=== PATIENT | male | born 1975 | race Caucasian/White ===

== ENCOUNTER 2024-06-01 20:36 | Emergency (ER) | payer MEDICAID, SELFPAY ==
[2024-06-01 20:37] VITALS: BP 138/83; PULSE 73; RESP 18; TEMP 36.6; O2SAT 98; BMI 28.1; BMI 32.3
--- NOTE | 2024-06-01 20:47 | PC.NURSE ---
Dr. Negro at bedside
--- NOTE | 2024-06-01 20:51 | CT_ITS ---
PROCEDURE INFORMATION: Exam: CT Abdomen And Pelvis With Contrast Exam date and time: 06/01/2024 9:28 PM Age: 48 years old Clinical indication: Nausea; Abdominal pain; Additional info: H/o diverticulitis, llq pain and nausea TECHNIQUE: Imaging protocol: Computed tomography of the abdomen and pelvis with contrast. Radiation optimization: All CT scans at this facility use at least one of these dose optimization techniques: automated exposure control; mA and/or kV adjustment per patient size (includes targeted exams where dose is matched to clinical indication); or iterative reconstruction. Contrast material: ISOVUE; Contrast volume: 75 ml; Contrast route: IV; COMPARISON: No relevant prior studies available. FINDINGS: Heart: Cardiomegaly Liver: Normal. No mass. Gallbladder and biliary ducts: Cholecystectomy Pancreas: Normal. No ductal dilation. Spleen: Normal. No splenomegaly. Adrenal glands: Normal. No mass. Kidneys and ureters: Several nonobstructing calyceal calculi are present at inferior poles both kidneys. These measure 2-3 mm in diameter. No ureteral calculus. Stomach and bowel: Diverticulitis at the proximal sigmoid colon. Appendix: No evidence of appendicitis. Intraperitoneal space: Unremarkable. No free air. No significant fluid collection. Vasculature: Unremarkable. No abdominal aortic aneurysm. Lymph nodes: Unremarkable. No enlarged lymph nodes. Urinary bladder: Mild diffuse thickening of the urinary bladder. Reproductive: Unremarkable as visualized. Bones/joints: Unremarkable. No acute fracture. Soft tissues: Unremarkable. Other findings: No rim enhancing fluid collection. IMPRESSION: Uncomplicated diverticulitis at proximal sigmoid colon.
--- NOTE | 2024-06-01 21:00 | ED_ITS ---
Discharge Plan Disposition Patient Disposition: Home, Self-Care Prescriptions Prescriptions: New amoxicillin-pot clavulanate 875-125 mg tablet 1 tab PO BID 10 Days Qty: 20 0RF No Action nifedipine 30 mg tablet extended release 24hr 30 mg PO DAILY Patient Comments: TOME 1 TABLETA POR V A ORAL TODOS LOS D metformin 500 mg tablet 500 mg PO BID Patient Comments: TOME 1 TABLETA POR V A ORAL TODOS LOS D ketoconazole 2 % cream 1 applic TOPICAL DAILY Patient Comments: APLIQUE AL WING AFECTADA TODOS LOS D fluticasone propionate 50 mcg/actuation spray,suspension 2 spray INTRANASAL DAILY Patient Comments: USE 2 SPRAYS IN EACH NOSTRIL ONCE DAILY Referrals Follow up/Referrals: Provider,Referral, MD [Primary Care Provider] - See instructions Activity Restrictions/Add. Instructions Additional Instructions/Restrictions: Marii antibioticos 2 veces por celine para 10 marino. Si tiene sintomas mas malas, or sintomas no improban despues 3 marino, regresa al departamento de emergencias. Clinical Impressions Clinical Impression: Diverticulitis Instructions Patient Instructions: DI for Diverticulitis, DI for Acute Abdominal Pain Print Language Print Language: Macedonian Discharge ED Provider: Alphonse Coelho General Adult HPI <Segundo Negro MD - Last Filed: 06/01/24 23:01> General Chief complaint: Abdominal Pain Stated complaint: stomach pain Time Seen by Provider: 06/01/24 20:38 History of Present Illness HPI narrative: Please note that above description of symptoms, in this electronic medical record under categorization of recalled from ER triage doctor by RN are reflective of an initial nursing assessment, however, is not reflective of my full history and physical exam that was personally taken and clarified. Consequentially, this preceding description of symptoms, which may include the patient's categorized chief complaint in the EMR, do not reflect my personal clinical impression, and the ultimate description of history of present illness and patient stated complaints should be deferred to this section of the note. Unless stated otherwise or congruent with this section of the note, additional signs, symptoms, or incongruence should be interpreted as inaccurate with my clinical impression. Related Data Home Medications ?Medication ?Instructions ?Recorded ?Confirmed fluticasone propionate 50 2 spray intranasal DAILY 06/01/24 06/01/24 mcg/actuation nasal spray,suspension ketoconazole 2 % topical cream 1 applic topical DAILY 06/01/24 06/01/24 metformin 500 mg tablet 500 mg PO BID 06/01/24 06/01/24 nifedipine 30 mg tablet,extended 30 mg PO DAILY 06/01/24 06/01/24 release 24 hr Previous Rx's ?Medication ?Instructions ?Recorded amoxicillin 875 mg-potassium 1 tab PO BID 10 days #20 tabs 06/01/24 clavulanate 125 mg tablet Allergies Allergy/AdvReac Type Severity Reaction Status Date / Time No Known Allergies Allergy Verified 06/01/24 20:52 [facility] <Segundo Negro MD - Last Filed: 06/01/24 23:01> [facility] Disclaimer: The information contained in this section may have been updated after the patient was seen, as this information can be updated by other users. Medical History (Updated 06/01/24 @ 22:55 by Segundo Negro MD) High blood pressure Diabetes Social History (Updated 06/01/24 @ 23:01 by Segundo Negro MD) Smoking Status: Current some day smoker alcohol intake: never current occupational status: employed Travel in the last 8 weeks: None <Segundo Negro MD - Last Filed: 06/01/24 23:01> ROS Obtained: Yes All systems reviewed & no additional complaints except as documented Physical Exam <Segundo Negro MD - Last Filed: 06/01/24 23:01> General General appearance: alert Head Head exam: atraumatic and normocephalic Eye Eye exam: Present normal appearance, PERRL and EOMI Neck Neck exam: Present normal inspection, full ROM and trachea midline Respiratory Respiratory exam: Absent respiratory distress, wheezes, stridor, accessory muscle use or prolonged expiratory phase Cardiovascular Cardiovascular exam: Present regular rate, normal rhythm and other (Pulses equal symmetric in upper and lower extremities) Abdominal Exam Abdominal exam: Present soft and tenderness; Absent distention, guarding, rebound, rigidity or pulsatile mass Abdominal tenderness: Present LLQ, suprapubic and moderate Extremities Exam Extremities exam: Absent edema Neurological Exam Neurological exam: Present alert, oriented X3 and CN II-XII intact; Absent motor sensory deficit Skin Skin exam: Present warm and dry; Absent diaphoresis or erythema Medical Decision Making <Segundo Negro MD - Last Filed: 06/01/24 23:01> Medical Records Medical records reviewed: Yes I reviewed the patient's medical records. Screening: Per USPSTF and CDC recommendations, given the prevalence of disease in our region, it is our hospital?s policy to screen for HIV and viral Hepatitis for all patients aged 18 and over and those with ongoing risk factors. Serge Inquiry Pt receiving controlled substance: No Serge was queried for this patient: No Vital Signs: 06/01/24 20:37 06/01/24 23:37 06/01/24 23:52 Temperature 98 F 98.0 F Temperature Source Oral Oral Pulse Rate 66 63 Pulse Rate [Right] 73 Respiratory Rate 18 18 Blood Pressure 143/104 H 143/104 H Blood Pressure [Right Arm] 138/83 Blood Pressure Mean [Right Arm] 101 Blood Pressure Source Automatic Cuff Blood Pressure Source [Right Arm] Automatic Cuff 02 Sat by Pulse Oximetry 98 97 Oxygen Delivery Method Room Air Room Air Lab Data Lab Results 06/01/24 20:53: VBG pH 7.38, VBG pCO2 45.1, VBG pO2 37.5, VBG HCO3 26.0, VBG Total CO2 27.4 H, VBG O2 Saturation 74.7 H, VBG Base Excess 0.9, VBG Lactic Acid 1.4 06/01/24 20:58: WBC 10.2, RBC 4.50 L, Hgb 15.0, Hct 42.8, MCV 95.1 H, MCH 33.2 H , MCHC 35.0, RDW 13.6, Plt Count 156, MPV 10.1, Neut % (Auto) 74.7, Lymph % (Auto) 17.1, Hernando % (Auto) 7.1, Eos % (Auto) 0.6, Baso % (Auto) 0.5, Neut # (Auto) 7.6, Lymph # (Auto) 1.8, Hernando # (Auto) 0.7, Eos # (Auto) 0.1, Baso # (Auto) 0.1, APTT 30.7 H, Sodium 140, Potassium 3.2 L, Chloride 106, Carbon Dioxide 28, Anion Gap 9.2, BUN 21 H, Creatinine 0.90, Estimated Creat Clear 132, Estimated GFR 91, Est GFR ( Amer) 110, Glucose 109 H, Lactate 0.6 L, Calcium 8.8, Total Bilirubin 0.6, AST 26, ALT 30, Alkaline Phosphatase 82, Total Protein 7.2, Albumin 4.4, Globulin 2.8, Albumin/Globulin Ratio 1.6, Lipase 141 06/01/24 21:03: Urine Color Yellow, Urine Appearance Clear, Urine pH 7.0, Ur Specific Bronson 1.015, Urine Protein Negative, Urine Glucose (UA) Negative, Urine Ketones Negative, Urine Blood Trace-i, Urine Nitrate Negative, Urine Bilirubin Negative, Urine Urobilinogen 0.2, Ur Leukocyte Esterase Trace, Urine RBC 3-5, Urine WBC 3-5, Ur Squamous Epith Cells Occasional, Urine Bacteria Trace 06/01/24 20:58 06/01/24 20:58 Orders (Tests/Meds): ED MEDICATIONS Generic Name Dose Route Start Last Admin Trade Name Fremarivel PRN Reason Stop Dose Admin Sodium Chloride 10 ml 06/01/24 21:40 06/01/24 21:42 Sodium Chloride 0.9% 10ml Syr (Rad Only) IV 07/01/24 21:39 10 ml NEEDED PRN Administration Maintain IV Site Discontinued Medications Generic Name Dose Route Start Last Admin Trade Name Dorene PRN Reason Stop Dose Admin Acetaminophen 1,000 mg 06/01/24 20:51 06/01/24 21:04 Acetaminophen 500mg Tab PO 06/01/24 20:52 1,000 mg ONCE ONE Administration Ampicillin Sodium/Sulbactam 100 mls @ 200 mls/hr 06/01/24 22:11 06/01/24 22:25 Sodium 3 gm/ Sodium Chloride IV 06/01/24 22:12 Not Given ONCE ONE Ampicillin Sodium/Sulbactam 100 mls @ 200 mls/hr 06/01/24 22:17 06/01/24 22:20 Sodium 3 gm/ Sodium Chloride IV 06/01/24 22:18 200 mls/hr ONCE ONE Administration Iopamidol 75 ml 06/01/24 21:40 06/01/24 21:42 Iopamidol-370 (76%);100ml Bottle IV 06/01/24 21:41 75 ml ONCE ONE Administration Ketorolac Tromethamine 15 mg 06/01/24 20:51 06/01/24 21:04 Ketorolac 30mg/Ml Vial IV 06/01/24 20:52 15 mg ONCE ONE Administration ORDERS Category Date Time Status CT abdomen pelvis w con Stat Cat Scan 06/01/24 20:51 Completed Complete Blood Count Auto Diff Stat Lab 06/01/24 20:58 Completed Comprehensive Metabolic Panel Stat Lab 06/01/24 20:58 Completed HIV (1&2) Antibody Rapid Stat Lab 06/01/24 20:58 Received Hep C Ab with Reflex to RNA Stat Lab 06/01/24 20:58 Received Lactic Acid Stat Lab 06/01/24 20:58 Completed Lipase Stat Lab 06/01/24 20:58 Completed PTT [Activated Partial Thrombo Time] Stat Lab 06/01/24 20:58 Completed Urinalysis and Microscopic Stat Lab 06/01/24 21:03 Completed Venous Blood Gas Stat RT 06/01/24 20:53 Ordered Medical Decision Narrative: 48-year-old male history of diabetes, diverticulitis managed previously with oral Augmentin, cholecystectomy presenting with abdominal pain. He states that it started around 7 PM tonight, 06/01. Progressively worse since that time. His left lower quadrant, 6 out of 10, radiates across his lower abdomen intermittently. No fevers or chills, nausea or vomiting, diarrhea, blood in his stool, or urinary symptoms since the pain started. Last bowel movement was earlier today, normal for him. He has had blood in his stool in the past, but has not had any blood in his stool for the past several days or since this started. Patient has not taken any medications for this and does not know anything that makes it better or worse. History was obtained via conversation with patient. On arrival, patient hemodynamically stable, alert, oriented x4, appropriate, GCS 15, moving all extremities spontaneously, pupils equal and reactive to light. Full physical exam performed and significant for well- appearing 48-year-old male, no acute distress. Speaking in full sentences. Abdomen is soft, moderately tender in left lower quadrant suprapubic area without rebound, rigidity, or guarding. Patient has no overlying skin changes. No left flank tenderness. Differential includes PUD, gastritis, enteritis, gastroenteritis, pancreatitis, SBO, colitis, diverticulitis, nephrolithiasis, UTI, cholecystitis, choledocholithiasis, appendicitis, torsion, hepatitis, less likely aortic pathology, mesenteric ischemia among others. Patient placed on continuous cardiac monitoring and continuous pulse ox with initial blood pressure 138/83, heart rate 73, saturation 98% on room air. Patient was given Toradol, acetaminophen for symptomatic management and correction of underlying abnormalities. Workup independently interpreted and significant for nonactionable CBC with normal white count. VBG not acidotic, lactate negative. Lipase negative. Urinalysis without concern for. On independent interpretation of imaging, patient has uncomplicated diverticulitis without obvious evidence of abscess or rupture. No evidence of free air. See radiology read for full review of final results. On reevaluation, patient resting comfortably, states his pain is improved with the Toradol and acetaminophen. Given patient presentation, workup, history, this most likely represents uncomplicated diverticulitis. Patient given initial dose of Unasyn 3 g. Augmentin sent to pharmacy. prior to final read and disposition, care handed off to oncoming physician. Welding Operator disclaimer Much of this encounter note is an electronic university administrative assistant spoken language to printed text. Electronic university administrative assistant of the spoken language may permit errors. Although I have reviewed the note, some errors may still exist. <Alphonse Coelho MD - Last Filed: 06/01/24 23:58> Vital Signs: 06/01/24 20:37 06/01/24 23:37 06/01/24 23:52 Temperature 98 F 98.0 F Temperature Source Oral Oral Pulse Rate 66 63 Pulse Rate [Right] 73 Respiratory Rate 18 18 Blood Pressure 143/104 H 143/104 H Blood Pressure [Right Arm] 138/83 Blood Pressure Mean [Right Arm] 101 Blood Pressure Source Automatic Cuff Blood Pressure Source [Right Arm] Automatic Cuff 02 Sat by Pulse Oximetry 98 97 Oxygen Delivery Method Room Air Room Air Lab Data Lab Results 06/01/24 20:53: VBG pH 7.38, VBG pCO2 45.1, VBG pO2 37.5, VBG HCO3 26.0, VBG Total CO2 27.4 H, VBG O2 Saturation 74.7 H, VBG Base Excess 0.9, VBG Lactic Acid 1.4 06/01/24 20:58: WBC 10.2, RBC 4.50 L, Hgb 15.0, Hct 42.8, MCV 95.1 H, MCH 33.2 H , MCHC 35.0, RDW 13.6, Plt Count 156, MPV 10.1, Neut % (Auto) 74.7, Lymph % (Auto) 17.1, Hernando % (Auto) 7.1, Eos % (Auto) 0.6, Baso % (Auto) 0.5, Neut # (Auto) 7.6, Lymph # (Auto) 1.8, Hernando # (Auto) 0.7, Eos # (Auto) 0.1, Baso # (Auto) 0.1, APTT 30.7 H, Sodium 140, Potassium 3.2 L, Chloride 106, Carbon Dioxide 28, Anion Gap 9.2, BUN 21 H, Creatinine 0.90, Estimated Creat Clear 132, Estimated GFR 91, Est GFR ( Amer) 110, Glucose 109 H, Lactate 0.6 L, Calcium 8.8, Total Bilirubin 0.6, AST 26, ALT 30, Alkaline Phosphatase 82, Total Protein 7.2, Albumin 4.4, Globulin 2.8, Albumin/Globulin Ratio 1.6, Lipase 141 06/01/24 21:03: Urine Color Yellow, Urine Appearance Clear, Urine pH 7.0, Ur Specific Bronson 1.015, Urine Protein Negative, Urine Glucose (UA) Negative, Urine Ketones Negative, Urine Blood Trace-i, Urine Nitrate Negative, Urine Bilirubin Negative, Urine Urobilinogen 0.2, Ur Leukocyte Esterase Trace, Urine RBC 3-5, Urine WBC 3-5, Ur Squamous Epith Cells Occasional, Urine Bacteria Trace Orders (Tests/Meds): ED MEDICATIONS Generic Name Dose Route Start Last Admin Trade Name Freq PRN Reason Stop Dose Admin Sodium Chloride 10 ml 06/01/24 21:40 06/01/24 21:42 Sodium Chloride 0.9% 10ml Syr (Rad Only) IV 07/01/24 21:39 10 ml NEEDED PRN Administration Maintain IV Site Discontinued Medications Generic Name Dose Route Start Last Admin Trade Name Freq PRN Reason Stop Dose Admin Acetaminophen 1,000 mg 06/01/24 20:51 06/01/24 21:04 Acetaminophen 500mg Tab PO 06/01/24 20:52 1,000 mg ONCE ONE Administration Ampicillin Sodium/Sulbactam 100 mls @ 200 mls/hr 06/01/24 22:11 06/01/24 22:25 Sodium 3 gm/ Sodium Chloride IV 06/01/24 22:12 Not Given ONCE ONE Ampicillin Sodium/Sulbactam 100 mls @ 200 mls/hr 06/01/24 22:17 06/01/24 22:20 Sodium 3 gm/ Sodium Chloride IV 06/01/24 22:18 200 mls/hr ONCE ONE Administration Iopamidol 75 ml 06/01/24 21:40 06/01/24 21:42 Iopamidol-370 (76%);100ml Bottle IV 06/01/24 21:41 75 ml ONCE ONE Administration Ketorolac Tromethamine 15 mg 06/01/24 20:51 06/01/24 21:04 Ketorolac 30mg/Ml Vial IV 06/01/24 20:52 15 mg ONCE ONE Administration ORDERS Category Date Time Status CT abdomen pelvis w con Stat Cat Scan 06/01/24 20:51 Completed Complete Blood Count Auto Diff Stat Lab 06/01/24 20:58 Completed Comprehensive Metabolic Panel Stat Lab 06/01/24 20:58 Completed HIV (1&2) Antibody Rapid Stat Lab 06/01/24 20:58 Received Hep C Ab with Reflex to RNA Stat Lab 06/01/24 20:58 Received Lactic Acid Stat Lab 06/01/24 20:58 Completed Lipase Stat Lab 06/01/24 20:58 Completed PTT [Activated Partial Thrombo Time] Stat Lab 06/01/24 20:58 Completed Urinalysis and Microscopic Stat Lab 06/01/24 21:03 Completed Venous Blood Gas Stat RT 06/01/24 20:53 Ordered Medical Decision Narrative: 48-year-old male history of diabetes, diverticulitis managed previously with oral Augmentin, cholecystectomy presenting with abdominal pain. He states that it started around 7 PM tonight, 06/01. Progressively worse since that time. His left lower quadrant, 6 out of 10, radiates across his lower abdomen intermittently. No fevers or chills, nausea or vomiting, diarrhea, blood in his stool, or urinary symptoms since the pain started. Last bowel movement was earlier today, normal for him. He has had blood in his stool in the past, but has not had any blood in his stool for the past several days or since this started. Patient has not taken any medications for this and does not know anything that makes it better or worse. History was obtained via conversation with patient. On arrival, patient hemodynamically stable, alert, oriented x4, appropriate, GCS 15, moving all extremities spontaneously, pupils equal and reactive to light. Full physical exam performed and significant for well- appearing 48-year-old male, no acute distress. Speaking in full sentences. Abdomen is soft, moderately tender in left lower quadrant suprapubic area without rebound, rigidity, or guarding. Patient has no overlying skin changes. No left flank tenderness. Differential includes PUD, gastritis, enteritis, gastroenteritis, pancreatitis, SBO, colitis, diverticulitis, nephrolithiasis, UTI, cholecystitis, choledocholithiasis, appendicitis, torsion, hepatitis, less likely aortic pathology, mesenteric ischemia among others. Patient placed on continuous cardiac monitoring and continuous pulse ox with initial blood pressure 138/83, heart rate 73, saturation 98% on room air. Patient was given Toradol, acetaminophen for symptomatic management and correction of underlying abnormalities. Workup independently interpreted and significant for nonactionable CBC with normal white count. VBG not acidotic, lactate negative. Lipase negative. Urinalysis without concern for. On independent interpretation of imaging, patient has uncomplicated diverticulitis without obvious evidence of abscess or rupture. No evidence of free air. See radiology read for full review of final results. On reevaluation, patient resting comfortably, states his pain is improved with the Toradol and acetaminophen. Given patient presentation, workup, history, this most likely represents uncomplicated diverticulitis. Patient given initial dose of Unasyn 3 g. Augmentin sent to pharmacy. prior to final read and disposition, care handed off to oncoming physician. Welding Operator disclaimer Much of this encounter note is an electronic university administrative assistant spoken language to printed text. Electronic university administrative assistant of the spoken language may permit errors. Although I have reviewed the note, some errors may still exist. Meliton BHATTI: I assumed care of the patient at the time of handoff from the prior provider. On reassessment patient abelino hemodynamically stable. CT imaging independently interpreted by me and shows uncomplicated diverticulitis, no evidence of rim- enhancing fluid collection or perforation. These findings were communicated with patient and he was discharged in stable condition with specific return precautions and prescription for Augmentin for treatment of diverticulitis. Critical Care <Segundo Negro MD - Last Filed: 06/01/24 23:01> Critical Care Time Critical Care Time: No
[2024-06-01] MEDS: ACETAMINOPHEN 500MG TAB 1000 MG PO (21:04)
[2024-06-01] MEDS: KETOROLAC 30MG/ML VIAL 15 MG IV (21:04)
[2024-06-01 21:08] LABS: Microscopic, Urine URINE MICROSCOPIC (MICROSCOPIC)
--- NOTE | 2024-06-01 21:08 | PC.NURSE ---
Administered 1000mg of PO tylenol and 15mg of ketorlac as per the MAR
[2024-06-01 21:10] LABS: Lactate Venous 1.4 mmol/L (0.4-2.0); VBG Base Excess 0.9 mmol/L (-2.4-2.3); VBG Oxygen Saturation 74.7 % (50-70); VBG PCO2 45.1 mmol/L (35-51); VBG PH 7.38 mmol/L (7.31-7.41); VBG PO2 37.5 mmol/L (28-40); VBG Total CO2 27.4 mmol/L (23-27)
[2024-06-01 21:11] LABS: Appearance,Urine CLEAR (Clear); Bilirubin,Urine Negative (Negative); Blood, Urine TRACE-I (Negative); Color,Urine YELLOW (Yellow); Glucose,Urine (UA) Negative (Negative); Ketones,Urine Negative (Negative); Leukocyte Esterase,Urine TRACE (Negative); Nitrate,Urine Negative (Negative); Protein,Urine Negative (Negative); Specific Gravity, Urine 1.015 (1.005-1.030); Urobilinogen,Urine 0.2 EU/dl (0.2)
[2024-06-01 21:11] LABS: Albumin Level 4.4 g/dl (3.5-5.0); Chloride 106 mmol/L (98-107)
[2024-06-01 21:12] LABS: Basophils # 0.1 K/mm3 (0-0.2); Basophils % 0.5 % (0.1-2.0); Eosinophils # 0.1 K/mm3 (0.0-0.4); Eosinophils % 0.6 % (0.1-12.0); Hematocrit 42.8 % (42.0-52.0); Lymphocytes # 1.8 K/mm3 (0.7-4.5); Lymphocytes % 17.1 % (10-50); Mean Corpuscular Hemoglobin 33.2 pg (27.0-31.2); Mean Corpuscular Volume 95.1 fl (80-94); Mean Platelet Volume 10.1 fl (7.4-10.4); Monocytes # 0.7 K/mm3 (0.1-1.0); Monocytes % 7.1 % (1.7-9.3); Neutrophils # 7.6 K/mm3 (1.8-7.8); Neutrophils % 74.7 % (37.0-80.0); Platelet Count 156 K/mm3 (142-424); Potassium 3.2 mmoL/L (3.5-5.1); Red Cell Distribution Width 13.6 % (11.5-17.5); Sodium 140 mmol/L (136-145); White Blood Count 10.2 K/mm3 (4.8-10.8)
[2024-06-01 21:14] LABS: Alanine Aminotransferase 30 U/L (12-78); Anion Gap 9.2 mEq/L (5-15); Aspartate Amino Transferase 26 U/L (17-59); Blood Urea Nitrogen 21 mg/dl (9-20); Carbon Dioxide 28 mmol/L (22.0-30.0); Creatinine Clearance Estimated 132 mL/min (50-200); Estimated Glomerular Filt Rate 91 ml/min (>60); GFR (African American) 110 ML/MIN (>60); Lactic Acid 0.6 mmol/L (0.7-2.1)
[2024-06-01 21:15] LABS: Albumin/Globulin Ratio 1.6 (1.1-1.8); Alkaline Phosphatase 82 U/L (38-126); Bilirubin,Total 0.6 mg/dl (0.2-1.3); Calcium 8.8 mg/dl (8.4-10.2); Globulin 2.8 g/dL (1.3-3.2); Glucose 109 mg/dl (74-100); Lipase 141 U/L (23-300); Total Protein,Serum 7.2 g/dl (6.3-8.2)
[2024-06-01 21:21] LABS: Activated Partial Thrombo Time 30.7 seconds (22.8-30.6)
[2024-06-01 21:25] LABS: Bacteria,Urine Trace /lpf; Squamous Epithelial Cell,Urine Occasional #/hpf (0-5)
--- NOTE | 2024-06-01 21:31 | PC.NURSE ---
pt to ct scan via wheelchair
[2024-06-01] MEDS: SODIUM CHLORIDE 0.9% 10ML SYR (RAD ONLY) 10 ML IV (21:42)
[2024-06-01] MEDS: IOPAMIDOL-370 (76%);100ML BOTTLE 75 ML IV (21:42)
[2024-06-01] MEDS: AMPICILLIN SODIUM/SULBACTAM 3 GM in 0.9 % SODIUM CHLORIDE 100 ML IV (22:20)
--- NOTE | 2024-06-01 22:26 | PC.NURSE ---
Administered ampicillin 3gm adv as per the MAR, order changed due a 3gm vial not being available in the [facility]
--- NOTE | 2024-06-01 23:11 | PC.NURSE ---
Called radiology to check on the status of ct read
[2024-06-01 23:37] VITALS: BP 143/104; PULSE 66; O2SAT 97
[2024-06-01 23:52] VITALS: BP 143/104; PULSE 63; RESP 18; TEMP 36.7; O2SAT 98
[2024-06-02 00:39] LABS: HIV (1&2) Antibody Rapid NONREACTIVE (NONREACTIVE)
[2024-06-04 05:29] LABS: HCV Ab Non Reactive (Non Reactive)
== END 2024-06-01 23:58 | disposition home or self-care (01) ==
PROVIDERS: Emergency Medicine; Emergency Provider Emergency Medicine
DX: K57.92 Diverticulitis of intestine, part unspecified, without perforation or abscess without bleeding (principal); R10.32 Left lower quadrant pain
CPT/HCPCS: 74177; 80053; 81001; 82803; 83605; 83690; 85025; 85730; 86803; 87389; 96374; 96375; 99285; J0295; J1885; Q9967